=== PATIENT | female | born 1935 | race Caucasian/White ===

== ENCOUNTER 2016-09-30 14:09 | Observation (INO) | payer OTHER, BC ==
[~2016-09-30] VITALS: Ht 160 cm; Wt 69.9 kg
[2016-09-30 14:50] LABS: HEMATOCRIT 37.5 % (36.0-46.0); MCH 28.4 PG (29.0-34.0); MCHC 32.5 G/DL (30.0-36.0); MCV 87.2 FL (83-99); PLATELET COUNT 217 K/uL (156-360); RBC DIS.WIDTH-CV 15.9 % (11.8-14.6); RBC DIS.WIDTH-SD 50.6 % (39-53); WHITE BLOOD COUNT 8.5 K/uL (4.1-10.2)
[2016-09-30 14:59] LABS: CHLORIDE 105 mEq/L (99-109); POTASSIUM 3.9 mEq/L (3.7-5.4); SODIUM 139 mEq/L (136-147)
[2016-09-30 15:00] LABS: GLUCOSE 111 mg/dL (70-99); INTER. NORMALIZED RATIO 1.1; PROTHROMBIN TIME 10.7 (9.2-11.2)
[2016-09-30 15:02] LABS: ANION GAP 9 MEQ/L (2-14)
[2016-09-30 15:04] LABS: GFR ESTIMATE (CALCULATED) > 59 mL/min/
[2016-09-30 15:05] LABS: UREA NITROGEN (BUN) 18 mg/dL (9-23)
[2016-09-30 15:11] LABS: TROP-I INTERPRETATION NEGATIVE; TROPONIN-I < 0.01 ng/mL (0.0-0.30)
[2016-09-30] MEDS ORDERED: ALPRAZOLAM0.25 M2 PO (15:52)
[2016-09-30] MEDS ORDERED: ISOSORBIDE MONO30 MG PO (15:52)
[2016-09-30] MEDS ORDERED: NITROSTAT0.4 MG SL (15:53)
[2016-09-30] MEDS ORDERED: ELIQUIS5 MG PO (15:53)
[2016-09-30] MEDS ORDERED: LIDODERM 5% P1 PATCH TD (15:53)
[2016-09-30] MEDS ORDERED: SYNTHROID150 MCG PO (15:54)
[2016-09-30] MEDS ORDERED: METFORMIN HCL500 MG PO (15:54)
[2016-09-30] MEDS ORDERED: METOPROLOL SUCC50 MG PO (15:54)
[2016-09-30] MEDS ORDERED: FENOFIBRATE48 MG PO (15:54)
[2016-09-30] MEDS ORDERED: PLAVIX75 MG PO (15:54)
[2016-09-30] MEDS ORDERED: VITAMIN D10000 UNIT PO (15:55)
[2016-09-30] MEDS ORDERED: EYE DROP BOTH EYES (15:55)
[2016-09-30] MEDS ORDERED: CYANOCOBALAM1000 MCG PO (15:56)
[2016-09-30 18:01] LABS: POINT-OF-CARE METER ID UU14100415
[2016-09-30 19:42] VITALS: BP 141/65
[2016-09-30 21:20] LABS: TROP-I INTERPRETATION NEGATIVE; TROPONIN-I < 0.01 ng/mL (0.0-0.30)
[2016-09-30 23:36] VITALS: BP 107/49
[2016-10-01 03:23] LABS: TROP-I INTERPRETATION NEGATIVE; TROPONIN-I < 0.01 ng/mL (0.0-0.30)
[2016-10-01 03:50] VITALS: BP 127/60
[2016-10-01 07:52] LABS: POINT-OF-CARE METER ID UU13113700
[2016-10-01 08:34] VITALS: BP 163/69
[2016-10-01 11:36] VITALS: BP 142/64
[2016-10-01 12:26] LABS: POINT-OF-CARE METER ID UU13113831
== END 2016-10-01 15:17 | disposition home or self-care (01) ==
LOC: EME 14:09 → 5WEST 15:54 → EDOF 15:54 → 5WEST 19:17
PROVIDERS: Emergency Medicine; Internal Medicine; Student in an Organized Health Care Education/Training Program
DX: R07.9 Chest pain, unspecified (principal); I48.0 Paroxysmal atrial fibrillation; E11.9 Type 2 diabetes mellitus without complications; I25.10 Atherosclerotic heart disease of native coronary artery without angina pectoris; I10 Essential (primary) hypertension; E78.5 Hyperlipidemia, unspecified; I25.2 Old myocardial infarction; Z95.5 Presence of coronary angioplasty implant and graft; Z79.01 Long term (current) use of anticoagulants; Z87.891 Personal history of nicotine dependence
CPT/HCPCS: 71010; 80048; 82948; 84484; 85027; 85610; 93005; 99281; 99285; G0378